=== PATIENT | male | born 1945 | race Hispanic/Latino ===

== ENCOUNTER 2016-06-06 12:27 | Outpatient (CLI) | payer MEDICARE ==
[2016-06-06 14:57] LABS: Hemoglobin A1c 7.5 % (4.0-6.0)
[2016-06-06 14:59] LABS: ALT (SGPT) 39 U/L (0-55); AST (SGOT) 25 U/L (5-34); Alkaline Phosphatase 54 U/L (40-150); Anion Gap 14 mmol/L (10-20); BUN (Urea Nitrogen) 18 mg/dL (8.4-25.7); Bilirubin, Total 0.5 mg/dL (0.2-1.2); Calc. Creatinine Clearance 0 mL/min (70-130); Carbon Dioxide 26 mmol/L (23-31); Chloride 106 mmol/L (98-107); Estimated GFR-MDRD 59; Globulin 2.8 g/dL (2.4-3.5); LDL Cholesterol, Calculated 74 mg/dL; Magnesium 1.8 mg/dL (1.6-2.6); Protein, Total 6.8 g/dL (5.8-8.1)
== END 2016-06-06 12:28 | disposition home or self-care (01) ==
LOC: NAV LABSP 12:27
PROVIDERS: ATTEND Specialist
DX: I10 Essential (primary) hypertension (principal); I48.2 Chronic atrial fibrillation; E11.59 Type 2 diabetes mellitus with other circulatory complications; E78.2 Mixed hyperlipidemia
CPT/HCPCS: 80053; 80061; 83036; 83735

== ENCOUNTER 2016-06-12 12:29 | Outpatient (CLI) | payer MEDICARE ==
[2016-06-12 14:44] LABS: Digoxin 0.65 ng/mL (0.8-2.0)
== END 2016-06-12 12:30 | disposition home or self-care (01) ==
LOC: NAVSJIPCSP 12:29
PROVIDERS: ATTEND Specialist
DX: I48.2 Chronic atrial fibrillation (principal); I10 Essential (primary) hypertension; E11.59 Type 2 diabetes mellitus with other circulatory complications; E78.2 Mixed hyperlipidemia
CPT/HCPCS: 80162